=== PATIENT | female | born 1985 | race Caucasian/White ===

== ENCOUNTER 2016-06-14 21:46 | Emergency (ER) | payer OTHER ==
[~2016-06-14] VITALS: Ht 175.3 cm; Wt 82.0 kg
[~2016-06-14 21:46] MED LIST: ULTR50TA PO; Z.0.BCPILL PO
[2016-06-14] MEDS ORDERED: SODIUM CHLOR 0.9% 1000 ML INJ 1,000 ML IV SCH (21:50)
[2016-06-14 21:55] VITALS: BP 138/78; PULSE 80; RESP 16; TEMP 98.2; O2SAT 100
[2016-06-14] MEDS ORDERED: HYDROmorphone HCL PF 1 MG/ML VIAL IV PUSH ONE ×2 (22:00→23:15)
[2016-06-14] MEDS ORDERED: SODIUM CHLORIDE 0.9% FLUSH 5 ML FLUSH IVF PRN (22:00)
[2016-06-14 22:41] LABS: AUTOMATED NEUTROPHIL # 8.2 TH/MM3 (1.8-7.7); BASOPHIL % 0.2 % (0.0-2.0); EOSINOPHIL # 0.3 TH/MM3 (0-0.4); EOSINOPHIL % 2.2 % (0.0-4.0); HEMO FLAGS DIFF FINAL; LYMPH % 21.5 % (9.0-44.0); LYMPHOCYTE # 2.5 TH/MM3 (1.0-4.8); MEAN CELL VOLUME 86.1 FL (80.0-100.0); MEAN CORPUSCULAR HGB CONC 34.8 % (32.0-36.0); MONO % 6.7 % (0.0-8.0); NEUT % 69.4 % (16.0-70.0); PLATELET COUNT 216 TH/MM3 (150-450); RED BLOOD COUNT 4.29 MIL/MM3 (4.00-5.30); RED CELL DISTRIBUTION WIDTH 13.2 % (11.6-17.2); WHITE BLOOD COUNT 11.8 TH/MM3 (4.0-11.0)
--- NOTE | 2016-06-14 22:41 | RADRPT ---
EXAM DATE/TIME: 06/14/2016 22:13 [facility] COMPARISON: No previous studies available for comparison. INDICATIONS : Pain from fall. MEDICAL HISTORY : None. SURGICAL HISTORY : None. ENCOUNTER: Initial ACUITY: 1 day PAIN SCORE: 10/10 LOCATION: Left humerus. FINDINGS: Heart size enlarged. Probable basilar dependent atelectasis. No pneumothorax or effusion. Fracture mi d left humeral shaft. CONCLUSION: 1. Cardiomegaly. Minimal basilar dependent atelectasis. Fracture mid left humeral shaft. Cleveland Soni MD on June 14, 2016 at 22:39 Board Certified Radiologist. This report was verified electronically.
--- NOTE | 2016-06-14 22:45 | RADRPT ---
EXAM DATE/TIME: 06/14/2016 22:18 [facility] COMPARISON: No previous studies available for comparison. INDICATIONS : Pain from fall. MEDICAL HISTORY : None. SURGICAL HISTORY : None. ENCOUNTER: Initial ACUITY: 1 day PAIN SCORE: 10/10 LOCATION: Left humerus, midshaft. FINDINGS: There is a slightly angulated and displaced fracture mid shaft left humerus. No other fractures ident ified. CONCLUSION: 1. Fracture midshaft left humerus. Cleveland Soni MD on June 14, 2016 at 22:43 Board Certified Radiologist. This report was verified electronically.
[2016-06-14 22:51] LABS: APTT (PATIENT) 26.6 SEC (24.3-30.1); PROTHROMBIN TIME - PATIENT 11.4 SEC (9.8-11.6)
[2016-06-14 23:09] LABS: BICARBONATE 29.4 MEQ/L (21.0-32.0); POTASSIUM 3.4 MEQ/L (3.5-5.1)
--- NOTE | 2016-06-14 23:12 | PD ---
HPI Chief Complaint: Musculoskeletal Complaint Time Seen by Provider: 21:50 Travel History International Travel<30 days: No Contact w/Intl Traveler<30days: No Traveled to known affect area: No History of Present Illness HPI Patient is a 30-year-old female who presents to emergency room with complaints of pain to her left arm. Patient reports that she was trying to break up a fight between her 3 dogs, reports that she slipped backwards and landed on her left side. Patient reports that she broke her fall with her left arm, reports that when this happened, she heard a crack. Patient with pain to her left upper extremity. Patient denies trauma to head or neck. Patient denies loss of consciousness. Patient was given 10 mg of morphine prior to arrival to emergency room. PFSH Past Medical History Diminished Hearing: No Past Surgical History Joint Replacement: Yes (ACL REPAIR) Social History Alcohol Use: No Tobacco Use: No Substance Use: No Allergies-Medications (Allergen,Severity, Reaction): Coded Allergies: Naprosyn (Verified Allergy, Intermediate, Hives, 04/24/13) Erythromycin (Verified Adverse Reaction, Mild, HIVES, 04/24/13) Reported Meds & Prescriptions Reported Meds & Active Scripts Active Ultram (Tramadol HCl) 50 Mg Tab 50 Mg PO Q6-8HPRN Reported Control Pills (Miscellaneous Medication) Tab 1 Tab PO DAILY Review of Systems General / Constitutional: No: Fever Eyes: No: Visual changes HENT: No: Headaches Cardiovascular: No: Chest Pain or Discomfort Respiratory: No: Shortness of Breath Gastrointestinal: No: Abdominal Pain Genitourinary: No: Dysuria Musculoskeletal: Positive: Limited ROM, Edema, Pain (left upper extremitiy) Skin: No Rash Neurologic: No: Weakness Psychiatric: No: Depression Endocrine: No: Polydipsia Hematologic/Lymphatic: No: Easy Bruising Physical Exam Narrative GENERAL: Moderate distress SKIN: Warm and dry. HEAD: Atraumatic. Normocephalic. EYES: Pupils equal and round. No scleral icterus. No injection or drainage. ENT: No nasal bleeding or discharge. Mucous membranes pink and moist. NECK: Trachea midline. No JVD. No C-spine tenderness, no midline tenderness CARDIOVASCULAR: Regular rate and rhythm. No murmur appreciated. RESPIRATORY: No accessory muscle use. Clear to auscultation. Breath sounds equal bilaterally. GASTROINTESTINAL: Abdomen soft, non-tender, nondistended. Hepatic and splenic margins not palpable. MUSCULOSKELETAL: Patient with obvious deformity to left upper extremity, no signs of open fracture, pulses intact.. No clubbing. No cyanosis. No edema. NEUROLOGICAL: Awake and alert. No obvious cranial nerve deficits. Motor grossly within normal limits. Normal speech. PSYCHIATRIC: Appropriate mood and affect; insight and judgment normal. Data Data Last Documented VS Vital Signs Date Time Temp Pulse Resp B/P Pulse Ox O2 Delivery O2 Flow Rate FiO2 06/14/16 21:55 98.2 80 16 138/78 100 Orders Basic Metabolic Panel (Bmp) (06/14/16 21:50) Complete Blood Count With Diff (06/14/16 21:50) Prothrombin Time / Inr (Pt) (06/14/16 21:50) Act Partial Throm Time (Ptt) (06/14/16 21:50) Beta Hcg (Quant/Titer) (06/14/16 21:50) Chest, Single Ap (06/14/16 21:50) Sodium Chlor 0.9% 1000 Ml Inj (Ns 1000 M (06/14/16 21:50) Sodium Chloride 0.9% Flush (Ns Flush) (06/14/16 22:00) Humerus (Min 2vws) (06/14/16 ) Hydromorphone Pf Inj (Dilaudid Pf Inj) (06/14/16 22:00) Shoulder, Limited(2vws) (06/14/16 ) Sling And Swathe (06/14/16 ) Forearm (2vws) (06/14/16 ) Hydromorphone Pf Inj (Dilaudid Pf Inj) (06/14/16 23:15) Sling And Swathe (06/14/16 ) Elbow, Limited (Ap&Lat) (06/14/16 ) Hydromorphone Pf Inj (Dilaudid Pf Inj) (06/15/16 01:15) Ondansetron Odt (Zofran Odt) (06/15/16 01:30) Labs Laboratory Tests Test 06/14/16 22:21 White Blood Count 11.8 TH/MM3 Red Blood Count 4.29 MIL/MM3 Hemoglobin 12.9 GM/DL Hematocrit 37.0 % Mean Corpuscular Volume 86.1 FL Mean Corpuscular Hemoglobin 30.0 PG Mean Corpuscular Hemoglobin 34.8 % Concent Red Cell Distribution Width 13.2 % Platelet Count 216 TH/MM3 Mean Platelet Volume 7.9 FL Neutrophils (%) (Auto) 69.4 % Lymphocytes (%) (Auto) 21.5 % Monocytes (%) (Auto) 6.7 % Eosinophils (%) (Auto) 2.2 % Basophils (%) (Auto) 0.2 % Neutrophils # (Auto) 8.2 TH/MM3 Lymphocytes # (Auto) 2.5 TH/MM3 Monocytes # (Auto) 0.8 TH/MM3 Eosinophils # (Auto) 0.3 TH/MM3 Basophils # (Auto) 0.0 TH/MM3 CBC Comment DIFF FINAL Differential Comment Prothrombin Time 11.4 SEC Prothromb Time International 1.0 RATIO Ratio Activated Partial 26.6 SEC Thromboplast Time Sodium Level 140 MEQ/L Potassium Level 3.4 MEQ/L Chloride Level 104 MEQ/L Carbon Dioxide Level 29.4 MEQ/L Anion Gap 7 MEQ/L Blood Urea Nitrogen 9 MG/DL Creatinine 0.72 MG/DL Estimat Glomerular Filtration 96 ML/MIN Rate Random Glucose 131 MG/DL Calcium Level 8.4 MG/DL Human Chorionic Gonadotropin, 38 MIU/ML Quant MDM Medical Decision Making Medical Screen Exam Complete: Yes Emergency Medical Condition: Yes Interpretation(s) Vital Signs Date Time Temp Pulse Resp B/P Pulse Ox O2 Delivery O2 Flow Rate FiO2 06/14/16 21:55 98.2 80 16 138/78 100 Last Impressions Chest X-Ray 06/14/16 2150 Signed Impressions: Service Date/Time: Tuesday, June 14, 2016 22:13 - CONCLUSION: 1. Cardiomegaly. Minimal basilar dependent atelectasis. Fracture mid left humeral shaft. Cleveland Soni MD Radius/Ulna X-Ray 06/14/16 0000 Signed Impressions: Service Date/Time: Tuesday, June 14, 2016 23:47 - CONCLUSION: Negative exam. Ravinder Maria MD Humerus X-Ray 06/14/16 0000 Signed Impressions: Service Date/Time: Tuesday, June 14, 2016 22:18 - CONCLUSION: 1. Fracture midshaft left humerus. Cleveland Soni MD Elbow X-Ray 06/14/16 0000 Signed Impressions: Service Date/Time: Tuesday, June 14, 2016 23:40 - CONCLUSION: Distal humeral fracture. The osseous structures about the elbow are grossly intact. Ravinder Maria MD Differential Diagnosis Humerus fracture, forearm fracture, shoulder fracture, pneumothorax Narrative Course Patient is a 30-year-old female who presents to emergency room after she tripped and fell and landed on her left arm. Patient with no loss of consciousness, no headache or midline tenderness. Patient with pain to her left upper extremity. Patient with obvious deformity to her left upper extremity, x-rays ordered for further evaluation of symptoms. Patient with left-sided fracture of the midshaft of humerus. Plan to place patient in a sling and swath Reviewed x-rays with patient in detail, copies of x-ray report given to patient. Patient put in sling and swath. Patient will follow up with orthopedic surgery and return to ER as needed. Discussed with patient that she should not drive or operate heavy machinery will taking narcotic pain medications Diagnosis Primary Impression: Fracture, humerus closed Qualified Code: S42.312A - Closed greenstick fracture of shaft of left humerus , initial encounter Referrals: Adrian Fallon MD Patient Instructions: General Instructions, Narcotic given in the ED Additional Instructions: Please call orthopedic surgeon first thing in the morning for earliest follow-up Please bring your x-ray reports to doctor's office for follow-up on all studies from today Do not drive or operate heavy machinery while taking her narcotic pain medications Return to ER as needed Med/Other Pt SpecificInfo: Prescription(s) given Scripts Oxycodone-Acetaminophen (Percocet)7.5-325 mg Tab1 Tab PO Q4H PRN (PAIN) #20 TAB Ref 0 Prov:Louisa Covington DO 06/15/16 Disposition: 01 DISCHARGE HOME Condition: Louisa Travis DO Jun 14, 2016 23:12
--- NOTE | 2016-06-15 00:37 | RADRPT ---
EXAM DATE/TIME: 06/14/2016 23:40 [facility] COMPARISON: No previous studies available for comparison. INDICATIONS : Left elbow numbness and pain with known humerus fracture. MEDICAL HISTORY : None. SURGICAL HISTORY : None. ENCOUNTER: Initial ACUITY: 1 day PAIN SCORE: 10/10 LOCATION: Left arm FINDINGS: Transverse and mildly angulated fracture of the distal shaft of the humerus. The osseous structures about the elbow are grossly intact. No evidence of elbow effusion. CONCLUSION: Distal humeral fracture. The osseous structures about the elbow are grossly intact. Ravinder Maria MD on June 15, 2016 at 0:35 Board Certified Radiologist. This report was verified electronically.
--- NOTE | 2016-06-15 00:38 | RADRPT ---
EXAM DATE/TIME: 06/14/2016 23:47 [facility] COMPARISON: No previous studies available for comparison. INDICATIONS : Left arm pain and numbness with known humerus fracture. MEDICAL HISTORY : None. SURGICAL HISTORY : None. ENCOUNTER: Initial ACUITY: 1 day PAIN SCORE: 10/10 LOCATION: Left arm FINDINGS: Two view examination of the left forearm demonstrates no evidence of fracture or dislocation. Bony m ineralization is normal. The soft tissue structures are intact. CONCLUSION: Negative exam. Ravinder Maria MD on June 15, 2016 at 0:36 Board Certified Radiologist. This report was verified electronically.
[2016-06-15] MEDS ORDERED: HYDROmorphone HCL PF 1 MG/ML VIAL IV PUSH ONE (01:15)
[2016-06-15] MEDS ORDERED: ONDANSETRON HCL 4 MG/2 ML VIAL ONE (01:30)
[2016-06-15] MEDS ORDERED: ONDANSETRON ODT 4 MG TAB PO ONE (01:30)
[2016-06-15] MEDS ORDERED: PERC7.5T13 PO (01:34)
[2016-06-15 02:06] VITALS: BP 130/70
--- NOTE | 2016-06-15 10:46 | RADRPT ---
EXAM DATE/TIME: 06/14/2016 22:15 [facility] COMPARISON: No previous studies available for comparison. INDICATIONS : Pain from fall. MEDICAL HISTORY : None. SURGICAL HISTORY : None. ENCOUNTER: Initial ACUITY: 1 day PAIN SCORE: 10/10 LOCATION: Left humerus. FINDINGS: Again seen is a fracture of the midshaft of the humerus. Humeral head is aligned with the acetabulum . Degenerative changes are noted about the shoulder with presumed chronic rotator cuff tear. CONCLUSION: 1. Humeral fracture as described above. 2. Anatomic alignment about the shoulder with presumed chronic rotator cuff tear. Chip Castillo MD FACR on June 15, 2016 at 10:40 Board Certified Radiologist. This report was verified electronically.
[2016-06-18] MEDS ORDERED: PREN29TA PO (06:57)
[2016-06-18] MEDS ORDERED: OXYC1TAB35 PO (10:57)
== END 2016-06-15 02:07 | disposition home or self-care (01) ==
LOC: NEPE 21:46
DX: S42.302A Unspecified fracture of shaft of humerus, left arm, initial encounter for closed fracture (principal); W01.0XXA Fall on same level from slipping, tripping and stumbling without subsequent striking against object, initial encounter; W54.8XXA Other contact with dog, initial encounter; Y92.9 Unspecified place or not applicable; M79.632 Pain in left forearm; M25.522 Pain in left elbow; I51.7 Cardiomegaly
CPT/HCPCS: 29125; 71010; 73030; 73060; 73070; 73090; 80048; 84702; 85025; 85610; 85730; 96361; 96374; 96376; 99284; J1170; J2405; J7030

== ENCOUNTER → 2016-06-18 | Day surgery (SDC) | payer OTHER ==
[~2016-06-18] VITALS: Ht 177.8 cm; Wt 101.0 kg
[~2016-06-18] MED LIST changes: +*HYDROmorphone PF 1 MG VIAL PERIprocedural Use ONLY ONE; +*MEPERIDINE 25 MG INJ VIAL PERIprocedural Use ONLY ONE; +*ONDANSETRON 4 MG VIAL PERIprocedural Use ONLY ONE; +*PROMETHAZINE 25 MG/ML VIAL PERIprocedural use ONLY ONE; +*morphine SULFATE 8 MG/ML PERIprocedure ONLY ONE; +ACETAMINOPHEN 1000 MG/100 ML VIAL IV ONE; +ACETAMINOPHEN/HYDROcodone 325 MG/7.5 MG TAB PO PRN; +BUPIVACAINE HCL PF 0.5% 30 ML VIAL NB ONE; +DEXAMETHASONE SOD PHOS PF 10 MG/ML VIAL IV ONE; +DO NOT ADM ANY ANTICOAGULANT DRUGS XX PRN; +GENTAMICIN SULFATE 80 MG/2 ML VIAL IRRIGATION ONE; +INSULIN HUMAN REGULAR 1,000 UNITS/10 ML VIAL SQ PRN; +LACTATED RINGER'S 1000 ML IV SCH; +METOPROLOL TARTRATE 25 MG TAB PO PRN; +MORPHINE SULFATE 4 MG/ML INJ IV PUSH PRN; +NEOSTIGMINE 3 MG/3 ML SYR IV ONE; +ONDANSETRON HCL 4 MG/2 ML VIAL IV PRN; +ONDANSETRON HCL 4 MG/2 ML VIAL IV PUSH ONE; +OXYC1TAB35 PO; +PERC7.5T13 PO; +PHENYLEPH/NS 1000 MCG/10 ML SYR IV ONE; +PREN29TA PO; +PROPOFOL 200 MG/20 ML AMP IV ONE; +SODIUM CHLORID 0.9% 500 ML IV SCH; +SODIUM CHLORIDE 0.9% FLUSH 5 ML FLUSH IVF PRN; +SODIUM CHLORIDE 0.9% FLUSH 5 ML FLUSH IVF SCH; +ceFAZolin 1,000 MG/NS 100 ML IV SCH; +fentaNYL CITRATE 250 MCG/5 ML AMP IV ONE; +fentaNYL CITRATE 250 MCG/5 ML AMP ONE; +oxyCODONE/ACETAMINOPHEN 7.5 MG/325 MG TAB PO PRN
[2016-06-18 06:58] VITALS: BP 152/75; PULSE 90; RESP 18; TEMP 98.3; O2SAT 98
[2016-06-18 07:15] LABS: AUTOMATED NEUTROPHIL # 7.4 TH/MM3 (1.8-7.7); BASOPHIL # 0.1 TH/MM3 (0-0.2); BASOPHIL % 0.5 % (0.0-2.0); EOSINOPHIL # 0.2 TH/MM3 (0-0.4); HEMATOCRIT 40.8 % (35.0-46.0); HEMO FLAGS DIFF FINAL; LYMPH % 23.3 % (9.0-44.0); LYMPHOCYTE # 2.5 TH/MM3 (1.0-4.8); MEAN CELL VOLUME 85.6 FL (80.0-100.0); MEAN CORPUSCULAR HEMOGLOBIN 30.4 PG (27.0-34.0); MEAN CORPUSCULAR HGB CONC 35.5 % (32.0-36.0); MONO % 6.8 % (0.0-8.0); NEUT % 67.4 % (16.0-70.0); PLATELET COUNT 256 TH/MM3 (150-450); RED BLOOD COUNT 4.77 MIL/MM3 (4.00-5.30); RED CELL DISTRIBUTION WIDTH 13.6 % (11.6-17.2); WHITE BLOOD COUNT 10.9 TH/MM3 (4.0-11.0)
[2016-06-18 13:40] VITALS: BP 147/77; PULSE 97; RESP 18; TEMP 99.6; O2SAT 96
--- NOTE | 2016-06-18 16:15 | RADRPT ---
EXAM DATE/TIME: 06/18/2016 10:28 [facility] COMPARISON: FLUOROSCOPY PORTABLE UP TO 1HR, June 18, 2016, 0:00. INDICATIONS : IM issac placement in the left humerus. MEDICAL HISTORY : None. SURGICAL HISTORY : None. ENCOUNTER: Initial ACUITY: 1 day PAIN SCORE: Non-responsive. LOCATION: Left humerus. FINDINGS: Fluoroscopic views of the left humerus demonstrates an intramedullary issac traversing a mid diaphyseal fracture with good anatomic alignment. CONCLUSION: Intramedullary issac traversing a mid diaphyseal fracture with good anatomic alignment.. Omayra Garza MD on June 18, 2016 at 16:12 Board Certified Radiologist. This report was verified electronically.
--- NOTE | 2016-06-22 22:14 | MP ---
cc: Nata BLACKWELL. DATE OF SURGERY 06/18/2016 PREOPERATIVE DIAGNOSIS Fracture left humeral diaphysis POSTOPERATIVE DIAGNOSIS Fracture left humeral diaphysis OPERATION PERFORMED Closed reduction and intramedullary fixation left humeral diaphysis fracture with Felipe yonny. SURGEON Daria Blackwell MD ANESTHESIA General endotracheal and interscalene block regional INDICATIONS AND FINDINGS This 30-year-old woman sustained an injury on 06/14/2016 when she fell on a wet floor on an outstretched left hand. At [facility] emergency department she was placed into a splint and sling and swath after x-rays were taken. She was seen by the undersigned and found to have a fracture of the mid shaft. X-rays showed a transverse fracture of the mid shaft to the humerus with a small butterfly fragment. OPERATIVE FINDINGS Showed the same fracture as noted previously. The medullary canal was very tight. The implant used was a Felipe Yonny, size ___ x 11 inches. PROCEDURE IN DETAIL The patient was brought to the operating room after an interscalene block regional anesthetic. She was placed in a spine position which on the Jar[place] table. A general anesthetic was administered. A bolster was placed behind and medial to the vertebral border of the scapula. The left shoulder and arm were then prepped with alcohol, Hibiclens and Chloraprep and draped in the usual manner with the shoulder draped free. She received prophylactic antibiotics in the form of Ancef. An appropriate time-out procedure was carried out. An incision was made at the anterior lateral aspect of the shoulder overlying the area of the anterior aspect of the greater tuberosity. The incision was deepened through the subcutaneous tissues down to the deltoid which was split longitudinally up to the humerus. The incision was deepened then down to the greater tuberosity of the humerus. The rotator interval was opened. Care was taken to prevent injury to the rotator cuff which was tagged with #1 FiberWire sutures. A guidepin was then drilled into the proximal humerus. A drill hole was then made with the appropriate reamer. After this was done, a guide pin was then passed down to the fracture site and then across the fracture site. Reaming was then initiated with the cannulated reamer. A 6 mm reamer was initially used. This was taken down to the isthmus and would not progress beyond the isthmus. At this time, it was felt that it would not be possible to ream this up to 8 mm in order to accommodate a 7-mm yonny. For this reason, it was felt that it would be appropriate to use a felipe yonny in place of the Synthes yonny that was planned. An appropriate sized felipe yonny was chosen. This was impacted into position after removal of the guide pin. This was then brought slightly out into the distal fragment and then was able to be advanced into the distal fragment and across the fracture site thus stabilizing the fracture site. The c-arm fluoroscopy verified anatomic positioning. The yonny was then brought down and seated as well as possible. The rotator cuff was repaired over the top of this with Tate Jian sutures. The wound was irrigated. The deltoid was repaired with 0 Vicryl interrupted [id number] sutures. Subcutaneous tissues were closed with 2-0 Vicryl interrupted simple sutures with buried knots. The skin was closed with continuous subcutaneous closed of 4-0 Monocryl. Wound was then dressed with Steri-Strips followed by a small 2 x 2 dressing and Tegaderm. She was placed back into a sling and swath. She was transferred to the recovery room in satisfactory condition having tolerated the procedure well. Counts were correct. Specimens none. Estimated blood loss 25 mL. MD MU Thompson/ /1:27 PM /9:57 PM
== END | disposition home or self-care (01) ==
LOC: HSDC 06:26
PROVIDERS: ATTEND Orthopaedic Surgery
DX: S42.302A Unspecified fracture of shaft of humerus, left arm, initial encounter for closed fracture (principal)
CPT/HCPCS: 01744; 01991; 24516; 64415; 73060; 76000; 85025; C1713; J0131; J0690; J1100; J1170; J1580; J2175; J2270; J2370; J2405; J2550; J2710; J3010; J7120

== ENCOUNTER 2017-07-25 16:46 | Inpatient (IN) | payer OTHER ==
[~2017-07-25] VITALS: Ht 177.8 cm; Wt 113.4 kg
[2017-07-25] VITALS (35 sets, daily range): BP systolic 137–164; BP diastolic 59–97; PULSE 78–126; RESP 16–22; TEMP 98.1–98.7; O2SAT 99–100
[2017-07-25] MEDS: LACTATED RINGER'S 1000 ML INJ 1,000 ML IV SCH ×4 (13:04→23:04)
[~2017-07-25 16:46] MED LIST changes: -*HYDROmorphone PF 1 MG VIAL PERIprocedural Use ONLY ONE; -*MEPERIDINE 25 MG INJ VIAL PERIprocedural Use ONLY ONE; -*ONDANSETRON 4 MG VIAL PERIprocedural Use ONLY ONE; -*PROMETHAZINE 25 MG/ML VIAL PERIprocedural use ONLY ONE; -*morphine SULFATE 8 MG/ML PERIprocedure ONLY ONE; -ACETAMINOPHEN 1000 MG/100 ML VIAL IV ONE; -ACETAMINOPHEN/HYDROcodone 325 MG/7.5 MG TAB PO PRN; -BUPIVACAINE HCL PF 0.5% 30 ML VIAL NB ONE; -DEXAMETHASONE SOD PHOS PF 10 MG/ML VIAL IV ONE; -DO NOT ADM ANY ANTICOAGULANT DRUGS XX PRN; -GENTAMICIN SULFATE 80 MG/2 ML VIAL IRRIGATION ONE; -INSULIN HUMAN REGULAR 1,000 UNITS/10 ML VIAL SQ PRN; -LACTATED RINGER'S 1000 ML IV SCH; -METOPROLOL TARTRATE 25 MG TAB PO PRN; -MORPHINE SULFATE 4 MG/ML INJ IV PUSH PRN; -NEOSTIGMINE 3 MG/3 ML SYR IV ONE; -ONDANSETRON HCL 4 MG/2 ML VIAL IV PRN; -ONDANSETRON HCL 4 MG/2 ML VIAL IV PUSH ONE; -PHENYLEPH/NS 1000 MCG/10 ML SYR IV ONE; -PROPOFOL 200 MG/20 ML AMP IV ONE; -SODIUM CHLORID 0.9% 500 ML IV SCH; -SODIUM CHLORIDE 0.9% FLUSH 5 ML FLUSH IVF PRN; -SODIUM CHLORIDE 0.9% FLUSH 5 ML FLUSH IVF SCH; -ULTR50TA PO; -Z.0.BCPILL PO; -ceFAZolin 1,000 MG/NS 100 ML IV SCH; -fentaNYL CITRATE 250 MCG/5 ML AMP IV ONE; -fentaNYL CITRATE 250 MCG/5 ML AMP ONE; -oxyCODONE/ACETAMINOPHEN 7.5 MG/325 MG TAB PO PRN
--- NOTE | 2017-07-25 17:47 | HHI.HP ---
HPI Chief Complaint Blood pressure elevation Date Seen: Jul 25, 2017 Time Seen: 17:40 Travel History International Travel<30 Days: No Contact w/Intl Traveler<30Days: No Known Affected Area: No History of Present Illness HPI Patient is 31-year-old white female at 36 weeks and [address] Zaidi presents with elevated blood pressures seen today. A pressure here on OB ED are 170/100 and several others in a similar range, she denies visual changes or abdominal pain. She does have 3+ pedal edema normal DTRs, she has had some headaches that she thought was related to sinus congestion. Baby is active heart rate tracing is reactive and there are no contractions, baby in a breech presentation confirmed by ultrasound Weeks Gestation: 36 Para: 0 : 4 History Obstetric History Obstetric History 3 early losses Social History Alcohol Use: No Tobacco Use: No Substance Abuse: No Allergies-Medications (Allergen,Severity, Reaction): Coded Allergies: naproxen (Unverified Allergy, Severe, Hives, 01/21/17) erythromycin base (Unverified Adverse Reaction, Severe, HIVES, 01/21/17) Home Meds Active Scripts Oxycodone-Acetaminophen (Oxycodone-Acetaminophen) 7.5-325 mg Tab, 1 TAB PO Q4H Y for PAIN SCALE 1 TO 10, #40 TAB Prov:Kirt Reed MD (Charles) 06/18/16 Oxycodone-Acetaminophen (Percocet) 7.5-325 mg Tab, 1 TAB PO Q4H Y for PAIN, #20 TAB 0 Refills Prov:Louisa Covington DO 06/15/16 Reported Medications Vit-Iron Carbonyl ( Plus Iron 29-1 mg) 1 Tab Tab, 1 TAB PO DAILY for Nutritional Supplement, #30 TAB 0 Refills 06/18/16 Review of Systems General / Constitutional: No: Fever, Weight Gain, Chills, Other Eyes: No: Diploplia, Blurred Vision, Visual changes, Pain, Photophobia HENT: No: Headaches, Vertigo, Lightheadedness Cardiovascular: No: Irregular Rhythm, Chest Pain or Discomfort, Palpitations, Tachycardia, Syncope, Varicosities, Edema, Cyanosis Respiratory: No: Cough, Short of Breath, Other Gastrointestinal: No: Nausea, Vomiting, Diarrhea Genitourinary: No: Decreased Urinary Output, Oliguria Musculoskeletal: No: Limited ROM, Weakness, Cramping, Edema, Pain Skin: No Rash, No Itching, No Dryness, No Lumps, No Change in Pigmentation, No Change in Nails, No Alopecia, No Lesions Neurologic: No: Weakness, Dizziness, Syncope, Focal Abnormalities, Coordination Problem, Headache, Slurred Speech, Seizures Psychiatric: No: Depression, Suicidal Ideations, Homicidal Ideation Endocrine: No: Heat Intolerance, Cold Intolerance, Polydipsia, Polyuria, Other Physical Exam Narrative GENERAL: Well-nourished, well-developed patient. SKIN: Warm and dry. HEAD: Normocephalic and atraumatic. EYES: No scleral icterus. No injection or drainage. face is puffy ENT: No nasal drainage noted. Mucous membranes pink. Airway patent. NECK: Supple, trachea midline. No JVD. CARDIOVASCULAR: Regular rate and rhythm without murmurs, gallops, or rubs. RESPIRATORY: Breath sounds equal bilaterally. No accessory muscle use. BREASTS: Bilateral exam showed no masses , no retractions, no nipple discharge. ABDOMEN/GI: Abdomen soft, non-tender, bowel sounds present, no rebound, no guarding Gravid to [37-] weeks size Fundal Height: [37-] GENITOURINARY: External Genitalia: intact and normal in appearance BUS glands: [-] Cervix: [post-] Dilatation: [FT ] Effacement: [-thick] Station: [-3] Presentation: [breech-] Membranes: [intact ] Uterine Contractions: [-none] FHT's: Category: [1-] Baseline: [-133] Reactive: [-R] Variability: [mod-] Decels: [-none] EXTREMITIES: No cyanosis , 3 + pedal edema. BACK: Nontender without obvious deformity. No CVA tenderness. NEUROLOGICAL: Awake and alert. Motor and sensory grossly within normal limits. Five out of 5 muscle strength in all muscle groups. Normal speech. normal DTRs Caprini VTE Risk Assessment Caprini VTE Risk Assessment: No/Low Risk (score <= 1) Caprini Risk Assessment Model Point Value = 1 Point Value = 2 Point Value = 3 Point Value = 5 Age 41-60 Minor surgery BMI > 25 kg/m2 Swollen legs Varicose veins or History of unexplained or recurrent spontaneous Oral contraceptives or hormone replacement Sepsis (< 1 month) Serious lung disease, including pneumonia (< 1 month) Abnormal pulmonary function Acute myocardial infarction Congestive heart failure (< 1 month) History of inflammatory bowel disease Medical patient at bed rest Age 61-74 Arthroscopic surgery Major open surgery (> 45 min) Laparoscopic surgery (> 45 min) Malignancy Confined to bed (> 72 hours) Immobilizing plaster cast Central venous access Age >= 75 History of VTE Family history of VTE Factor V Leiden Prothrombin [id number] Lupus anticoagulant Anticardiolipin antibodies Elevated serum homocysteine Heparin-induced thrombocytopenia Other congenital or acquired thrombophilia Stroke (< 1 month) Elective arthroplasty Hip, pelvis, or leg fracture Acute spinal cord injury (< 1 month) Prophylaxis Regimen Total Risk Factor Score Risk Level Prophylaxis Regimen 0-1 Low Early ambulation 2 Moderate Order ONE of the following: *Sequential Compression Device (SCD) *Heparin 5000 units SQ BID 3-4 Higher Order ONE of the following medications: *Heparin 5000 units SQ TID *Enoxaparin/Lovenox 40 mg SQ daily (WT < 150 kg, CrCl > 30 mL/min) *Enoxaparin/Lovenox 30 mg SQ daily (WT < 150 kg, CrCl > 10-29 mL/min) *Enoxaparin/Lovenox 30 mg SQ BID (WT < 150 kg, CrCl > 30 mL/min) AND/OR *Sequential Compression Device (SCD) 5 or more Highest Order ONE of the following medications: *Heparin 5000 units SQ TID (Preferred with Epidurals) *Enoxaparin/Lovenox 40 mg SQ daily (WT < 150 kg, CrCl > 30 mL/min) *Enoxaparin/Lovenox 30 mg SQ daily (WT < 150 kg, CrCl > 10-29 mL/min) *Enoxaparin/Lovenox 30 mg SQ BID (WT < 150 kg, CrCl > 30 mL/min) AND *Sequential Compression Device (SCD) Data Data Labs Urine dipstick on OB ED shows trace 1+ protein, 250 of glucose Assessment/Plan Assessment and Plan Patient is 31-year-old white female at 36-[address] Hilliard who presents with elevated blood pressures and -induced hypertension. Blood pressures in the 160-170/100-105 range, patient has no history of hypertension before today. She has no other medical problems, baby is active and the heart rate monitoring is within normal limits. Ultrasound done shows baby in a breech presentation Impression---induced hypertension, breech presentation Plan-we'll discuss patient with Dr. zaidi likely to plan to proceed with section for breech presentation and preeclampsia 1 day shy of 37 weeks Grant Mueller II, MD Jul 25, 2017 17:47
[2017-07-25] MEDS ORDERED: LACTATED RINGER'S 1000 ML INJ 1,000 ML IV ONE ×3 (17:52→21:42)
[2017-07-25] MEDS ORDERED: hydrALAZINE HCL 20 MG/ML VIAL IV PUSH PRN ×2 (18:00→18:15)
[2017-07-25] MEDS ORDERED: CALCIUM GLUCONATE 10% 1 GM/10 ML VIAL IV PUSH PRN ×2 (18:00→19:30)
[2017-07-25] MEDS ORDERED: ONDANSETRON HCL 4 MG/2 ML VIAL IV PUSH PRN (18:00)
[2017-07-25] MEDS ORDERED: SODIUM CHLORIDE 0.9% FLUSH 10 ML FLUSH IV FLUSH PRN ×2 (18:00→19:30)
[2017-07-25] MEDS ORDERED: OXYTOCIN 30 UNITS-500ML PREMIX 500 ML IV PRN (18:15)
[2017-07-25 18:17] LABS: BILIRUBIN, URINE NEG (NEG); BLOOD, URINE NEG (NEG); GLUCOSE,URINE 300 mg/dL (NEG); KETONE, URINE NEG (NEG); NITRITE,URINE NEG (NEG); PH, URINE 6.5 (5.0-8.5); SQUAMOUS EPITHELIAL CELL URINE 1 /hpf (0-5); URINE COLOR YELLOW (YELLW/STRAW); URINE LEUKOCYTE ESTERASE NEG (NEG)
[2017-07-25 18:18] LABS: AUTOMATED NEUTROPHIL # 6.7 TH/MM3 (1.8-7.7); BASOPHIL % 0.3 % (0.0-2.0); EOSINOPHIL # 0.1 TH/MM3 (0-0.4); EOSINOPHIL % 1.4 % (0.0-4.0); HEMATOCRIT 37.9 % (35.0-46.0); HEMOGLOBIN 13.1 GM/DL (11.6-15.3); LYMPH % 19.2 % (9.0-44.0); LYMPHOCYTE # 1.9 TH/MM3 (1.0-4.8); MEAN CORPUSCULAR HEMOGLOBIN 29.7 PG (27.0-34.0); MEAN CORPUSCULAR HGB CONC 34.6 % (32.0-36.0); MEAN PLATELET VOLUME 9.5 FL (7.0-11.0); MONO % 10.1 % (0.0-8.0); PLATELET COUNT 174 TH/MM3 (150-450); RED BLOOD COUNT 4.41 MIL/MM3 (4.00-5.30); WHITE BLOOD COUNT 9.7 TH/MM3 (4.0-11.0)
[2017-07-25 18:27] LABS: ALBUMIN 2.8 GM/DL (3.4-5.0); AST (GOT) 19 U/L (15-37); BICARBONATE 23.6 MEQ/L (21.0-32.0); BLOOD UREA NITROGEN 9 MG/DL (7-18); CALCIUM 8.4 MG/DL (8.5-10.1); CHLORIDE 105 MEQ/L (98-107); CREATININE 0.41 MG/DL (0.50-1.00); GLOMERULAR FILTRATION RATE 182 ML/MIN (>89); GLUCOSE,RANDOM 64 MG/DL (74-106); SODIUM (NA) 137 MEQ/L (136-145)
[2017-07-25 18:29] LABS: ALT (GPT) 15 U/L (10-53)
[2017-07-25 18:31] LABS: ALKALINE PHOSPHATASE 79 U/L (45-117); TOTAL BILIRUBIN ADULT 0.2 MG/DL (0.2-1.0); TOTAL PROTEIN 6.5 GM/DL (6.4-8.2)
[2017-07-25] MEDS ORDERED: ceFAZolin 2 GM PREMIX 50 ML IV SCH (19:00)
[2017-07-25] MEDS ORDERED: MORPHINE SULFATE PF 5 MG/10 ML VIAL ONE (19:19)
[2017-07-25] MEDS ORDERED: ONDANSETRON HCL 4 MG/2 ML VIAL IVP PRN (19:30)
[2017-07-25] MEDS ORDERED: CITRIC ACID-SODIUM CITRATE LIQ 30 ML UDC PO SCH (19:30)
[2017-07-25] MEDS ORDERED: KETOROLAC TROMETHAMINE 60 MG/2 ML (IM) VIAL IM PRN (19:30)
[2017-07-25] MEDS ORDERED: MAGNESIUM SULFATE 4 GM PREMIX 100 ML IV ONE (19:30)
[2017-07-25] MEDS ORDERED: ZOLPIDEM TARTRATE 5 MG TAB PO PRN (19:30)
[2017-07-25] MEDS ORDERED: NIFEdipine 10 MG CAP PO PRN ×3 (19:30→20:00)
[2017-07-25] MEDS ORDERED: MEASLES, MUMPS, RUBELLA VACCINE 0.5 ML VIAL SQ ONE (19:30)
[2017-07-25] MEDS ORDERED: OXYTOCIN 30 UNITS-500ML PREMIX 500 ML IV ONE (19:30)
[2017-07-25] MEDS ORDERED: LABETALOL HCL 100 MG/20 ML VIAL IV PUSH PRN ×3 (19:30→19:45)
--- NOTE | 2017-07-25 20:02 | MH ---
cc: CARRILLO RODRÍGUEZ DATE OF ADMISSION 07/25/2017 ADMISSION DIAGNOSIS 1. at 36-37 weeks. 2. Severe preeclampsia. 3. Breech presentation. HISTORY OF PRESENT ILLNESS The patient is a 31-year-old white female para 0-0-3-0, LMP of 11/01/2016, EDC of 08/08/2017 by dates, 08/16/2017 by early ultrasound. Her preop course has been benign. She was seen in the office early this week with normal blood pressure. She had gone to see a chiropractor yesterday at about 5:30 p.m. Her blood pressure was 160/110. She felt okay and went home to sleep. 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 She called the office around 4:00 p.m., was advised to come to the hospital. She has had a frontal type headache which she feels is more sinus like in nature with no signs of sinus infection, no visual changes, no abdominal pain. She was seen for evaluation in the OB ED with Dr. Mueller and was found have 2+ lower extremity edema and persistent hypertension with headache. She is admitted now for delivery. PAST MEDICAL HISTORY/PREVIOUS SURGERIES 1. Left ACL repair in 2012 2. June of 2016 she had a fractured left humerus repair with a issac. OB HISTORY Two ETPs and one spontaneous . ALLERGIES ERYTHROMYCIN NAPROSYN MEDICATIONS 1. Vitamins. 2. Baby aspirin daily. SOCIAL HISTORY She is . 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 No alcohol, tobacco or drugs. PHYSICAL EXAMINATION GENERAL: A well-nourished, well-developed white female VITAL SIGNS: Stable. Blood pressure 160/110. HEENT: Some edema. CHEST: Clear HEART: Regular rate. BREASTS: Symmetrical. ABDOMEN: Gravid, breech presentation confirmed with ultrasound EXTREMITIES: Show 2-3+ edema. Reflexes 2+ and equal. Cervical exam is deferred. ASSESSMENT: As above. PLAN She is now admitted for delivery. I have explained severe preeclampsia, need for delivery, risk of prematurity, risk of maternal compromise with prolonging the . I have discussed the need for postoperative magnesium sulfate therapy. The patient would like to proceed. MD KAILEE Green/ /7:13 PM /7:46 PM REECE
[2017-07-25] MEDS: SODIUM CHLORIDE 0.9% FLUSH 10 ML FLUSH IV FLUSH SCH ×2 (21:00)
[2017-07-25] MEDS: MAGNESIUM SULFATE 40 GM PREMIX 1,000 ML IV SCH (21:02)
[2017-07-25] MEDS ORDERED: ACETAMINOPHEN 1000 MG/100 ML 100 ML IV ONE (21:22)
[2017-07-25] MEDS: ACETAMINOPHEN 1000 MG/100 ML VIAL IV SCH (21:30)
[2017-07-26] VITALS (121 sets, daily range): BP systolic 136–167; BP diastolic 59–103; PULSE 80–117; RESP 17–20; TEMP 97.8–98.7; O2SAT 97–100
[2017-07-26] MEDS: LACTATED RINGER'S 1000 ML INJ 1,000 ML IV SCH ×5 (01:02→15:27)
[2017-07-26] MEDS: IBUPROFEN 600 MG TAB PO PRN ×4 (01:48→22:29)
[2017-07-26] MEDS: ACETAMINOPHEN 1000 MG/100 ML VIAL IV SCH ×2 (04:38→12:00)
[2017-07-26 05:15] LABS: BASOPHIL % 0.3 % (0.0-2.0); EOSINOPHIL # 0.1 TH/MM3 (0-0.4); EOSINOPHIL % 0.6 % (0.0-4.0); HEMATOCRIT 38.3 % (35.0-46.0); HEMOGLOBIN 13.3 GM/DL (11.6-15.3); LYMPH % 15.2 % (9.0-44.0); LYMPHOCYTE # 1.8 TH/MM3 (1.0-4.8); MEAN CELL VOLUME 85.4 FL (80.0-100.0); MEAN CORPUSCULAR HEMOGLOBIN 29.6 PG (27.0-34.0); MEAN CORPUSCULAR HGB CONC 34.7 % (32.0-36.0); MEAN PLATELET VOLUME 9.4 FL (7.0-11.0); MONO % 7.2 % (0.0-8.0); MONOCYTE # 0.8 TH/MM3 (0-0.9); NEUT % 76.7 % (16.0-70.0); PLATELET COUNT 163 TH/MM3 (150-450); RED BLOOD COUNT 4.48 MIL/MM3 (4.00-5.30); RED CELL DISTRIBUTION WIDTH 15.3 % (11.6-17.2); WHITE BLOOD COUNT 11.7 TH/MM3 (4.0-11.0)
[2017-07-26 05:22] LABS: BICARBONATE 25.1 MEQ/L (21.0-32.0); CALCIUM 7.9 MG/DL (8.5-10.1); CREATININE 0.37 MG/DL (0.50-1.00); MAGNESIUM 3.8 MG/DL (1.5-2.5)
[2017-07-26] MEDS: SODIUM CHLORIDE 0.9% FLUSH 10 ML FLUSH IV FLUSH SCH ×4 (09:00→21:00)
[2017-07-26] MEDS: LABETALOL HCL 200 MG TAB PO SCH ×2 (10:06→21:19)
[2017-07-26] MEDS: MAGNESIUM SULFATE 40 GM PREMIX 1,000 ML IV SCH (15:29)
[2017-07-26] MEDS: oxyCODONE/ACETAMINOPHEN 5 MG/325 MG TAB PO PRN ×2 (18:13→22:29)
[2017-07-26] MEDS ORDERED: NIFEdipine 60 MG SUSTAINED RELEASE TAB PO SCH (18:45)
[2017-07-26] MEDS: SIMETHICONE 80 MG CHEWABLE TAB PO PRN (18:50)
[2017-07-26] MEDS: DOCUSATE SODIUM 50 MG/SENNA 8.6 MG TAB PO PRN (22:29)
[2017-07-27 01:40] VITALS: BP 152/105
[2017-07-27] MEDS: SIMETHICONE 80 MG CHEWABLE TAB PO PRN (03:18)
[2017-07-27] MEDS: oxyCODONE/ACETAMINOPHEN 5 MG/325 MG TAB PO PRN ×4 (03:19→21:39)
[2017-07-27] MEDS: IBUPROFEN 600 MG TAB PO PRN ×4 (04:34→21:39)
[2017-07-27 04:51] VITALS: BP 142/77; PULSE 108; RESP 18; TEMP 98.1
[2017-07-27 09:00] VITALS: BP 156/88
[2017-07-27] MEDS ORDERED: DIPHTH/TETANUS/ACEL PERTUSSIS (BOOSTER) 0.5 ML VIAL/PFS IM ONE (09:00)
[2017-07-27 10:00] VITALS: BP 156/88; PULSE 100; RESP 18; TEMP 98.9; O2SAT 98
[2017-07-27] MEDS: LABETALOL HCL 200 MG TAB PO SCH ×2 (10:11→21:38)
[2017-07-27] MEDS: NIFEdipine 60 MG SUSTAINED RELEASE TAB PO SCH ×2 (10:11→21:38)
[2017-07-27] MEDS: DOCUSATE SODIUM 50 MG/SENNA 8.6 MG TAB PO PRN ×2 (10:12→21:38)
[2017-07-27 12:33] VITALS: BP 147/82; PULSE 93; RESP 18; TEMP 98.5
--- NOTE | 2017-07-27 13:18 | MP ---
cc: ANNECARRILLO DATE OF SURGERY: 07/26/2017 PREOPERATIVE DIAGNOSIS: 1. at 36-37 weeks. 2. Severe preeclampsia. 3. Isaiah breech presentation. POSTOPERATIVE DIAGNOSIS: 1. at 36-37 weeks. 2. Severe preeclampsia. 3. Isaiah breech presentation. 4. Delivered. PROCEDURE: Primary low transverse section. ANESTHESIA Spinal SURGEON Carrillo Zaidi MD CREATIVE PERFUMER Cailin Doshi ESTIMATED BLOOD LOSS: 550 cc. FLUIDS 2.5 liter of Crystalloid. OBJECTIVE FINDINGS: Following the induction of adequate spinal anesthesia, the patient was prepped and draped supine on the operating table in the left lateral tilt position, in sterile fashion with the bladder being drained by Mcgill catheterization. The abdomen was opened through a Pfannenstiel incision using a knife to cut down from the skin to the fascia. The fascia was opened transversely, stripped from the muscle. The rectus muscle was split in the midline and the peritoneum opened sharply without incident. The bladder flap was taken down sharply, retracted inferiorly with a [place] blade. The lower uterine segment was incised transversely with a knife and extended with blunt dissection. The membranes were ruptured with clear fluid. The baby was in the left sacral transverse position, was gently delivered with timber sizer operator guidance and fundal pressure, delivery progressed to the shoulder blades. Each arm was reduced and the head easily slipped through the abdominal wound. The mouth was suctioned, cord clamped and cut, and the baby passed to the awaiting team. A viable vigorous female, Apgars of 9 and 9, weight 6 pounds 14 ounces. Cord blood was collected for typing. The placenta manually removed and the uterine cavity was wiped clean with laps. The uterus was exteriorized. Tubes and ovaries normal. The uterus replaced in the cavity. Irrigation was performed. No bleeding was evident and the bladder flap was closed with running stitch of 3-0 Vicryl. All laps and retractors were removed, counts were correct. The anterior peritoneum was closed with a running stitch of 2-0 Vicryl, the fascia closed with a running locking stitch of 0 Vicryl corner to midline and tied. The subcu was closed with running 3-0 Vicryl and skin with a running subcuticular stitch of 3-0 Monocryl. Dermabond applied. All counts were correct. The patient was awake and taken to the recovery room in good condition. MD KAILEE Green/SANDRA /8:19 PM /1:08 PM
[2017-07-27 15:40] VITALS: BP_SYST 146; BP_SYST 156; BP_DIAS 88; PULSE 87; RESP 18; TEMP 98.5
[2017-07-27] MEDS: SODIUM CHLORIDE 0.9% FLUSH 10 ML FLUSH IV FLUSH SCH ×2 (20:49→20:50)
[2017-07-27] MEDS: LACTATED RINGER'S 1000 ML INJ 1,000 ML IV SCH ×2 (23:42→23:58)
[2017-07-28] VITALS (10 sets, daily range): BP systolic 115–162; BP diastolic 75–100; PULSE 76–117; RESP 14–16; TEMP 97.7–98.8; O2SAT 97–99
[2017-07-28] MEDS: IBUPROFEN 600 MG TAB PO PRN ×3 (04:08→16:40)
[2017-07-28] MEDS: oxyCODONE/ACETAMINOPHEN 5 MG/325 MG TAB PO PRN ×3 (04:09→16:40)
[2017-07-28] MEDS: LACTATED RINGER'S 1000 ML INJ 1,000 ML IV SCH ×3 (05:29→13:59)
--- NOTE | 2017-07-28 08:40 | HHI.DCPOC ---
Discharge Care Plan Report Symptoms to Your Doctor -Temperature above 100.5 degrees -Redness, of incision or excessive or foul smelling drainage -Unusual pain or calf pain -Increased vaginal bleeding -Painful or difficulty urinating -Feelings of extreme sadness or anxiety after 2 weeks Goals to Promote Your Health * To prevent worsening of your condition and complications * To maintain your health at the optimal level Directions to Meet Your Goals Take your medications as prescribed Follow your dietary instruction Follow activity as directed Ensure plenty of rest for recovery Drink fluids for hydration Keep your appointments as scheduled Take your immunizations and boosters as scheduled If your symptoms worsen call your PCP, if no PCP go to Urgent Care Center or Emergency Room Smoking is Dangerous to Your Health. Avoid second hand smoke Call the 24-hour crisis hotline for domestic abuse at Mat Zaidi MD Jul 28, 2017 08:40
[2017-07-28] MEDS ORDERED: NIFE60TA8 PO (08:46)
[2017-07-28] MEDS ORDERED: OXYC1TAB63 PO (08:46)
[2017-07-28] MEDS ORDERED: LABE200T2 PO (08:46)
[2017-07-28] MEDS: SODIUM CHLORIDE 0.9% FLUSH 10 ML FLUSH IV FLUSH SCH ×2 (09:00)
[2017-07-28] MEDS: NIFEdipine 60 MG SUSTAINED RELEASE TAB PO SCH (09:02)
[2017-07-28] MEDS: LABETALOL HCL 200 MG TAB PO SCH (09:02)
[2017-07-28] MEDS: SIMETHICONE 80 MG CHEWABLE TAB PO PRN (10:27)
[2017-07-28] MEDS: DOCUSATE SODIUM 50 MG/SENNA 8.6 MG TAB PO PRN (10:28)
--- NOTE | 2017-07-29 22:44 | MD ---
cc: CARRILLO RODRÍGUEZ ADMISSION DATE: 07/25/2017 DISCHARGE DATE: 07/28/2017 ADMISSION DIAGNOSIS at 36-37 weeks with severe preeclampsia, breech presentation. DISCHARGE DIAGNOSIS at 36-37 weeks with severe preeclampsia, breech presentation, plus delivered. HISTORY OF PRESENT ILLNESS A 31-year-old white female para 0-0-3-0 had EDC of 08/16/2017 by early ultrasound. She had seen her chiropractor on the day prior to admission. 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 She called the office about 04:00 p.m. the day of admission and was asked to report to the center immediately for evaluation. On arrival blood pressures were in the 170/110 range and multiple rechecks showed persistent elevation. Ultrasound confirmed the breech presentation and she also complained of a frontal headache. Her laboratory studies were pertinent except for the urine showing trace protein and delivery was recommended. She received spinal anesthesia, had a primary low transverse section with delivery of viable vigorous female. Apgars 9 and 9, weight 6 pounds 14 ounces. Postop she received mag sulfate for 24 hours and p.o. labetalol and Procardia for BP control. Discharged home in excellent condition 07/28/2017. She was Rh positive and GBS positive. She was given scripts for Percocet 5 one to two p.o. q.4h as needed, #60; Procardia XL 60 mg p.o. b.i.d., #60 refill one; labetalol 200 milligrams p.o. b.i.d. #60, refill one. Return to see me in 4 days and p.r.n. MD KAILEE Green/KK /9:01 AM /10:29 PM
== END 2017-07-28 18:46 | disposition home or self-care (01) | DRG 766 ==
LOC: HOBED 16:46 → H2EB 17:59 → H2EA 22:44 → H1EA 07-26 21:28
PROVIDERS: ADMIT Obstetrics & Gynecology; ATTEND Obstetrics & Gynecology
PROC: 10D00Z1 Extraction of Products of Conception, Low, Open Approach (ICD-10-PCS; principal; 2017-07-26)
DX: O14.14 Severe pre-eclampsia complicating childbirth (principal); O99.824 Streptococcus B carrier state complicating childbirth; O32.1XX0 Maternal care for breech presentation, not applicable or unspecified; Z37.0 Single live birth; Z3A.36 36 weeks gestation of pregnancy
CPT/HCPCS: 59025; 76815; 80048; 80053; 80307; 81001; 83735; 85025; 86850; 86900; 86901; 90715; J0131; J0690; J2274; J2590; J3475; J7120